=== PATIENT | female | born 1995 | race Caucasian/White ===

== ENCOUNTER 2022-08-22 10:18 | Emergency (ER) | payer OTHER, SELFPAY ==
--- NOTE | ~2022-08-22 | XR_ITS ---
EXAMINATION: XR CHEST CLINICAL INFORMATION: Chest pressure COMPARISON: None TECHNIQUE: Frontal view of the chest was obtained. FINDINGS: No significant abnormality is noted involving the heart, lungs, mediastinum, bony thorax or soft tissues. XR/XR chest 1V IMPRESSION: Unremarkable chest examination.
--- NOTE | 2022-08-22 10:24 | ECG_ITS ---
Test Reason : CHEST PRESSURE Blood Pressure : / mmHG Vent. Rate : 069 BPM Atrial Rate : 069 BPM P-R Int : 134 ms QRS Dur : 086 ms QT Int : 394 ms P-R-T Axes : 019 072 046 degrees QTc Int : 422 ms Normal sinus rhythm with sinus arrhythmia RSR' or QR pattern in V1 suggests right ventricular conduction delay Otherwise normal ECG When compared with ECG of 22-MAY-2013 14:22, No significant change was found Referred By: Generic ED Physician Electronically Signed By:JUSTIN JACQUES MD
[2022-08-22 10:27] VITALS: BP 125/73; PULSE 79; RESP 18; TEMP 36.4; O2SAT 98; BMI 28.9
[2022-08-22 10:42] LABS: MANUAL DIFF FLAG NO
[2022-08-22 10:45] LABS: Basophils Percent Auto 0.3 % (0-2); Eosinophils Absolute Auto 0.1 X10*3/uL (0.0-0.4); Eosinophils Percent Auto 1.4 % (0-4); Hematocrit 40.8 % (37.0-47.0); Hemoglobin 13.1 g/dl (12.0-16.0); Imm Gran Abs Auto 0.01 X10*3/uL (0.00-0.03); Imm Gran Pct Auto 0.1 % (0.0-0.4); Lymphocytes Absolute Auto 2.2 X10*3/uL (1.2-4.9); Lymphocytes Percent Auto 29.6 % (20-40); Mean Corpuscular HGB Conc 32.1 g/dl (31.0-35.0); Mean Corpuscular Hemoglobin 26.4 pg (27.0-33.0); Mean Corpuscular Volume 82.3 fL (80.0-98.0); Mean Platelet Volume 10.9 fL (9.4-12.3); Monocytes Absolute Auto 0.3 X10*3/uL (0.1-1.2); Monocytes Percent Auto 4.5 % (2-11); Neutrophils Absolute Auto 4.7 x10*3/uL (2.0-8.3); Neutrophils Percent Auto 64.1 % (45-73); Platelet Count 283 X10*3/uL (160-400); Red Blood Count 4.96 X10*6/uL (4.20-5.50); Red Cell Distribution Width 14.6 % (11.0-16.0); White Blood Count 7.3 X10*3/uL (4.8-10.8)
[2022-08-22 11:03] LABS: Anion Gap 14 (12-20); Blood Urea Nitrogen 12 mg/dL (9-16); Calcium 9.3 mg/dL (8.4-10.2); Carbon Dioxide 19 mmol/L (22-29); Chloride 111 mmol/L (96-108); Creatinine Clr Calc Pharmacy 101.3; Estimated Glomerular Filt Rate > 60; Glucose Random 89 mg/dL (60-115); Potassium 4.2 mmol/L (3.3-5.1); Sodium 140 mmol/L (135-145)
[2022-08-22 11:07] LABS: COVID-19 Test Negative (Negative); IDNOW Serial# 16C4AD1C
[2022-08-22 11:10] LABS: Troponin-I High Sensitivity < 3.5 ng/L (<3.5-17.0)
--- NOTE | 2022-08-22 13:07 | ED_ITS ---
HPI - Chest Pain General Chief Complaint: Chest Pain Stated Complaint: Chest pressure Time Seen by Provider: 08/22/22 12:44 Source: patient and family () Mode of arrival: ambulatory Limitations: no limitations History of Present Illness HPI narrative: 27-year-old female otherwise healthy presented for evaluation of chest pain. Pain started 14 hours ago while she was sleeping described as dull aching pain i n the mid chest feels like pressure, no radiation, no shortness of breath, no fever, no chills. No recent travel, no lower extremity swelling or tenderness, no DVT, no PE history. Related Data Allergies Allergy/AdvReac Type Severity Reaction Status Date / Time No Known Allergies Allergy Unverified 06/12/20 16:18 Review of Systems Review of Systems: All other systems are reviewed and are negative Constitutional: Reports as per HPI and Reports no additional constitutional complaints Eyes: Reports as per HPI and Reports no additional eye complaints Reports system reviewed and no additional complaints, except as documented Cardiovascular: Reports as per HPI and Reports no additional cardiovascular complaints Respiratory: Reports as per HPI and Reports no additional respiratory complaints Gastrointestinal: Reports as per HPI and Reports no additional gastrointestinal complaints Genitourinary: Reports no additional female genitourinary complaints Musculoskeletal: Reports no additional musculoskeletal complaints Skin/Breast: Reports system reviewed and no additional complaints, except as docu Psychiatric: Reports no additional psychiatric complaints Endocrine: Reports no additional endocrine complaints Hematologic/Lymphatic: Reports no additional hematologic/lymphatic complaints Allergic/Immunologic: Reports no additional allergic/immunologic complaints Reports system reviewed and no additional complaints, except as documented and Reports Abnormal speech present Physical Exam Vital Signs: Vital Signs: Last Vital Signs Temp 97.5 F 08/22/22 10:27 Pulse 79 08/22/22 10:27 Resp 18 08/22/22 10:27 BP 125/73 08/22/22 10:27 Pulse Ox 98 08/22/22 10:27 O2 Del Method 08/22/22 10:27 BMI result Body Mass Index 28.9 Vital signs have been reviewed as appeared to be correct. Blood pressure normal. Heart rate normal. Respiration rate normal. Temperature normal. Oxygen saturation normal. Appearance: Alert. Oriented X3. No acute distress. Head: Normal external exam. Normocephalic. Atraumatic. No Freedman signs noted. No raccoon eyes noted Eyes: PERRLA. EOMI. Conjunctiva and sclera normal. Eyelids normal. ENT: TM's Normal. Pharynx normal. Uvula midline. Moist mucous membranes. No trismus noted. No drooling noted. No muffled voice noted. Neck: Normal inspection. Neck supple. FROM. No adenopathy. Thyroid Normal. No meningeal signs. No neck mass noted. CVS: Normal heart rate and rhythm. Heart sound normal. No murmurs noted. Pulses normal throughout. Respiratory: No respiratory distress. Painless inspiration. Breath sounds normal. No wheezes/rales/rhonchi noted. Chest nontender. No accessory muscle usage noted or decreased air movement noted. Abdomen: Soft and nontender. Bowel sounds normal in all 4 quadrants. No distention noted. No organomegaly noted. No visible injury noted. Back: No CVA tenderness. Full range of motion noted. Skin: Skin warm and dry. Normal skin color. Normal skin turgor. No rashes/lesions/lacerations noted. Extremities: No lower extremity edema. Extremities exhibit normal range of motion. Extremities nontender. Neuro: Oriented X 3. Cranial nerve exam: II-XII are grossly intact No motor deficit. No sensory deficit. Reflexes normal. Course Course Course Narrative: Patient with HEART score of 0 unremarkable labs, patient at no risk for PE, stable vital signs, will reassure and discharge. MDM - Chest Pain Medical Records Data Attestation: I reviewed the patient's medical records. Lab Data Attestation: I reviewed the patient's lab results. Result diagrams: 08/22/22 10:37 08/22/22 10:37 Labs: Lab Results 08/22/22 08/22/22 08/22/22 Range/Units 10:37 10:37 10:37 WBC 7.3 (4.8-10.8) X10*3/uL RBC 4.96 (4.20-5.50) X10*6/uL Hgb 13.1 (12.0-16.0) g/dl Hct 40.8 (37.0-47.0) % MCV 82.3 (80.0-98.0) fL MCH 26.4 L (27.0-33.0) pg MCHC 32.1 (31.0-35.0) g/dl RDW 14.6 (11.0-16.0) % Plt Count 283 (160-400) X10*3/uL MPV 10.9 (9.4-12.3) fL Immature Gran % (Auto) 0.1 (0.0-0.4) % Neut % (Auto) 64.1 (45-73) % Lymph % (Auto) 29.6 (20-40) % Miller % (Auto) 4.5 (2-11) % Eos % (Auto) 1.4 (0-4) % Baso % (Auto) 0.3 (0-2) % Lymph # (Auto) 2.2 (1.2-4.9) X10*3/uL Miller # (Auto) 0.3 (0.1-1.2) X10*3/uL Eos # (Auto) 0.1 (0.0-0.4) X10*3/uL Baso # (Auto) 0.0 (0.0-0.2) X10*3/uL Abs Immat Gran (auto) 0.01 (0.00-0.03) X10*3/uL Absolute Neuts (auto) 4.7 (2.0-8.3) x10*3/uL Absolute Nucleated RBC 0.000 (0.0-0.012) X10*3/uL Nucleated RBC % (auto) 0.0 (0.0-0.2) /100WBC Sodium 140 (135-145) mmol/L Potassium 4.2 (3.3-5.1) mmol/L Chloride 111 H (96-108) mmol/L Carbon Dioxide 19 L (22-29) mmol/L Anion Gap 14 (12-20) BUN 12 (9-16) mg/dL Creatinine 0.70 (0.5-1.4) mg/dL Estim Creat Clear Calc 101.3 Estimated GFR > 60 Random Glucose 89 (60-115) mg/dL Calcium 9.3 (8.4-10.2) mg/dL Troponin I High Sens < 3.5 (<3.5-17.0) ng/L COVID-19 (GLENDA) (Negative) COVID-19 Clin Com 08/22/22 Range/Units 10:38 WBC (4.8-10.8) X10*3/uL RBC (4.20-5.50) X10*6/uL Hgb (12.0-16.0) g/dl Hct (37.0-47.0) % MCV (80.0-98.0) fL MCH (27.0-33.0) pg MCHC (31.0-35.0) g/dl RDW (11.0-16.0) % Plt Count (160-400) X10*3/uL MPV (9.4-12.3) fL Immature Gran % (Auto) (0.0-0.4) % Neut % (Auto) (45-73) % Lymph % (Auto) (20-40) % Miller % (Auto) (2-11) % Eos % (Auto) (0-4) % Baso % (Auto) (0-2) % Lymph # (Auto) (1.2-4.9) X10*3/uL Miller # (Auto) (0.1-1.2) X10*3/uL Eos # (Auto) (0.0-0.4) X10*3/uL Baso # (Auto) (0.0-0.2) X10*3/uL Abs Immat Gran (auto) (0.00-0.03) X10*3/uL Absolute Neuts (auto) (2.0-8.3) x10*3/uL Absolute Nucleated RBC (0.0-0.012) X10*3/uL Nucleated RBC % (auto) (0.0-0.2) /100WBC Sodium (135-145) mmol/L Potassium (3.3-5.1) mmol/L Chloride (96-108) mmol/L Carbon Dioxide (22-29) mmol/L Anion Gap (12-20) BUN (9-16) mg/dL Creatinine (0.5-1.4) mg/dL Estim Creat Clear Calc Estimated GFR Random Glucose (60-115) mg/dL Calcium (8.4-10.2) mg/dL Troponin I High Sens (<3.5-17.0) ng/L COVID-19 (GLENDA) Negative (Negative) COVID-19 Clin Com See Note Imaging Data Chest x-ray: Attestation: I personally reviewed and interpreted this imaging study as follows: Radiologist's impression: No acute pathology. ECG Data ECG #1: Attestation: I personally reviewed and interpreted this ECG as follows: Attending Attestation Normal sinus rhythm with sinus arrhythmia at 69 beats per minutes, normal intervals, no ST-T changes, no change from old EKG. Discharge Plan Discharge Clinical Impression: Chest pain Patient Disposition: Home, Self-Care Instructions: Chest Pain (ED) Referrals: Sonia Holland DO [Primary Care Provider] -
== END 2022-08-22 13:45 | disposition home or self-care (01) ==
PROVIDERS: Emergency Provider Emergency Medicine
DX: R07.89 Other chest pain (principal); Z20.822 Contact with and (suspected) exposure to COVID-19; Z79.899 Other long term (current) drug therapy
CPT/HCPCS: 36415; 71045; 80048; 84484; 85025; 87635; 93005; 99283

== ENCOUNTER 2025-06-12 08:30 | Outpatient (AMB) | payer OTHER, SELFPAY ==
--- NOTE | 2025-06-12 08:31 | MHC.PC.OV ---
Vital Signs 06/12/25 08:40 Height 5 ft 1.22 in Weight 161 lb 8 oz BMI 30.3 BP 110/80 Blood Pressure Location Rt brachial Position Sitting Respiration 16 Pulse 73 Pulse Source Pulse Oximeter Temp 97.9 F Temp Source Oral Pulse Oximetry (%) 98 Oxygen Delivery Method Room Air Intake Visit Reasons: Migraines, Abdominal pain Intake Note: having a lot of headaches and tiredness. Air Conditioning Service Technician Required: No Accompanied by: Self / Same As Patient Allergies No Known Allergies Allergy (Verified 06/12/25 08:31) Tobacco use date assessed: 06/12/25 Dental Screening Dental Screen Date: 06/12/25 Did you have a dental visit in the last 12 months?: No Did you have a dental problem in the last 6 months where you did not have access to dental care?: No Was dental information given to patient?: No HPI HPI Comments History of Present Illness Details History of Present Illness The patient is a 30-year-old female presenting with a headache and a history of knee dislocation who is establishing care with new primary care physician Headache: - The patient reports experiencing headaches for almost two months, characterized by significant tiredness. She mentioned she had history of anemia in the past and heavy menstrual cycles where she has a discharge of clots she has a family history of fibroids her mother, her mother had to have a hysterectomy performed Knee dislocation: - The patient experienced a knee dislocation that occurred spontaneously and required emergency room intervention to reposition the kneecap. Health Maintenance - Blood panel including hemogram, liver and kidney function tests, electrolytes, calcium, magnesium, thyroid function, hemoglobin A1c, lipid profile, vitamin D, and hepatitis B and C screening were ordered. - Screening for chlamydia and gonorrhea was discussed and agreed upon. -she is also due for cervical cancer screening she will make an appointment for follow-up Review of Systems - Neurological: Reports headaches for almost two months with associated tiredness. 10-point ROS reviewed and negative except as noted in HPI Family History Mother has history of fibroids status post hysterectomy Social History - Employment: Currently unemployed but starting a new job next week. Physical Exam General: Well-appearing, in no acute distress. Pale in color Vital signs: Within normal limits. HEENT: Normocephalic, atraumatic. PERRLA, EOMI. Conjunctiva clear, sclera anicteric. Oropharynx clear, mucous membranes moist. TMs intact bilaterally. Neck: Supple, no lymphadenopathy, no thyromegaly, no JVD or carotid bruits. Cardiovascular: RRR, normal S1/S2, no murmurs, rubs, or gallops. Peripheral pulses 2+ and symmetric. No edema. Respiratory: Lungs clear to auscultation bilaterally, no wheezes, rales, or rhonchi. Normal effort. Abdomen: Soft, non-tender, non-distended. Normoactive bowel sounds. No hepatosplenomegaly, no masses. MSK: Full range of motion, no joint swelling or deformity. Normal gait. Skin: Warm, dry, intact. No rashes, lesions, or pallor. Neuro: Alert and oriented x3. Cranial nerves II-XII intact. Strength 5/5 throughout. Sensation intact. Reflexes 2+ symmetric. Normal coordination and gait. Psych: Appropriate mood and affect. Normal judgment and insight. Discussion Notes I discussed with the patient the plan to conduct a comprehensive blood panel to evaluate various health parameters, including liver and kidney function, electrolytes, and thyroid function. We also agreed to screen for sexually transmitted infections, including chlamydia and gonorrhea. Follow-up was planned to review the results and continue with further management. Plan 1. Headache - Plan to conduct a comprehensive blood panel to rule out any underlying causes contributing to the headache. 2. Personal history of other (healed) physical injury and trauma Z87.828 dislocated knee last year Patient Instructions - Follow up in one to two weeks to review blood test results and discuss further management. ON LICENSE OF [facility] Family History (Updated 06/12/25 @ 08:40 by Miguel Ángel Hong MA) Father Parkinson disease Seizure Mother High cholesterol High blood pressure Non-alcoholic fatty liver disease Social History Housing: House Alcohol intake: current Alcohol intake frequency: does not drink Patient Tobacco Use Status: Never used Tobacco service: No Current occupational status: unemployed Cognitive needs: No Hearing needs: No Vision needs: Yes (rx glasses) Questionnaire PHQ-9 Over the last 2 weeks, how often have you been bothered by any of the following problems? 1. Little interest or pleasure in doing things: several days 2. Feeling down, depressed, or hopeless: several days 3. Trouble falling or staying asleep, or sleeping too much: several days 4. Feeling tired or having little energy: several days 5. Poor appetite or overeating: several days 6. Feeling bad about yourself - or that you are a failure or have let yourself or your family down: several days 7. Trouble concentrating on things, such as reading the newspaper or watching television: several days 8. Moving or speaking so slowly that other people could have noticed. Or the opposite - being so fidgety or restless that you have been moving around a lot more than usual: several days 9. Thoughts that you would be better off or of hurting yourself in some way: not at all Total score: 8 Depression Screening Interpretation: Positive Depression Screening Done: Yes Source: Developed by Drs. Eric Tierney, Sirisha Jeffery, Kvng Brandt and colleagues, with an educational letha from [employer]. Thrive Questionnaire Date Thrive assessed: 06/12/25 I am a: Patient What is your living situation today?: I have a steady place to live Within the past 12 months, did the food you bought not last and you didn't have the money to get more?: Sometimes True Within the past 12 months, did you worry whether your food would run out before you got money to buy more?: Sometimes True Do you have trouble paying for medicines?: No Do you have trouble getting transportation to medical appointments?: No Do you have trouble paying your heating and electricity bill?: No Do you have trouble taking care of your child, family member or friend?: No Are you currently unemployed and looking for a job?: No Are you interested in more education?: No Please select the resources that you would like help with: None Currently or been in a relationship where the following occur: No concerns reported THRIVE Score: 2 AUDIT C Alcohol Use Questionnaire (AUDIT-C) 1. How often do you have a drink containing alcohol?: Never 3. How often do you have six or more drinks on one occasion?: Never Total Score: 0 NIK-7 AMB Questionnaire NIK-7 Date NIK - 7 assessed: 06/12/25 Feeling nervous, anxious, or on edge: 1 = Several days Not being able to stop or control worryin = Several days Worrying too much about different things: 1 = Several days Trouble relaxin = Several days Being so restless that it is hard to sit still: 2 = More than half the days Becoming easily annoyed or irritable: 2 = More than half the days Feeling afraid as if something awful might happen: 1 = Several days Total NIK-7 score (0-4 normal; 5-9 mild; 10-14 moderate; 15-21 severe): 9 Source: Developed by Drs. Eric Tierney, Sirisha Jeffery, Kvng Brandt and colleagues, with an educational letha from [employer]. Physical exam (Primary Care) Depression Screening Interpretation: Positive Currently or been in a relationship where the following occur: No concerns reported Coding Level of Care Code New Pt Level 4 (32639) Diagnoses Establishing care with new doctor, encounter for Z76. Routine lab draw Z01. Encounter for screening, unspecified Z13.9 Screening for HIV (human immunodeficiency virus) Z11.4 Screening for depression Z13.31 Screening for diabetes mellitus Z13.1 Screening for lipoid disorders Z13.220 Hypertension screen Z13.6 Class 1 obesity E66.811 Adjustment disorder with mixed anxiety and depressed mood F43.23 Chronic intractable headache, unspecified headache type R51.9; G89.29 Headache type: unspecified Intractability: intractable Chronic fatigue R53.82 Fatigue type: chronic, unspecified Menorrhagia with regular cycle N92.0 Menorrhagia type: with regular cycle Assessment & Plan Assessment & Plan (1) Establishing care with new doctor, encounter for: Code(s): Z76.89 - Persons encountering health services in other specified circumstances (2) Routine lab draw: Code(s): Z01.89 - Encounter for other specified special examinations (3) Encounter for screening, unspecified: Code(s): Z13.9 - Encounter for screening, unspecified (4) Screening for HIV (human immunodeficiency virus): Code(s): Z11.4 - Encounter for screening for human immunodeficiency virus [HIV] (5) Screening for depression: Code(s): Z13.31 - Encounter for screening for depression (6) Screening for diabetes mellitus: Code(s): Z13.1 - Encounter for screening for diabetes mellitus (7) Screening for lipoid disorders: Code(s): Z13.220 - Encounter for screening for lipoid disorders (8) Hypertension screen: Code(s): Z13.6 - Encounter for screening for cardiovascular disorders (9) Class 1 obesity: Code(s): E66.811 - Obesity, class 1 (10) Adjustment disorder with mixed anxiety and depressed mood: Code(s): F43.23 - Adjustment disorder with mixed anxiety and depressed mood (11) Chronic headache: Code(s): R51.9 - Headache, unspecified; G89.29 - Other chronic pain Qualifiers: Headache type: unspecified Intractability: intractable Qualified Code(s): R51.9 - Headache, unspecified; G89.29 - Other chronic pain (12) Fatigue: Code(s): R53.83 - Other fatigue Qualifiers: Fatigue type: chronic, unspecified Qualified Code(s): R53.82 - Chronic fatigue, unspecified (13) Heavy menstrual bleeding: Code(s): N92.0 - Excessive and frequent menstruation with regular cycle Qualifiers: Menorrhagia type: with regular cycle Qualified Code(s): N92.0 - Excessive and frequent menstruation with regular cycle Plan Orders: Orders Hemoglobin A1c Today Z13.9 - Encounter for screening, unspecified, Z76.89 - Persons encountering health services in other specified circumstances Hepatitis B Surface Antibody Today Z13.9 - Encounter for screening, unspecified, Z76.89 - Persons encountering health services in other specified circumstances Hepatitis B Surface Antigen Today Z13.9 - Encounter for screening, unspecified, Z76.89 - Persons encountering health services in other specified circumstances Lipid Panel Today Z13.9 - Encounter for screening, unspecified, Z76.89 - Persons encountering health services in other specified circumstances Magnesium Today Z13.9 - Encounter for screening, unspecified, Z76.89 - Persons encountering health services in other specified circumstances UA CC w/rflx Micro + Cult Today Z13.9 - Encounter for screening, unspecified, Z76.89 - Persons encountering health services in other specified circumstances Vitamin B12 and Folate Today Z13.9 - Encounter for screening, unspecified, Z76.89 - Persons encountering health services in other specified circumstances US abdomen complete Today R10.9 - Unspecified abdominal pain, Z13.9 - Encounter for screening, unspecified, Z76.89 - Persons encountering health services in other specified circumstances CT NG by PCR Urine Today Z13.9 - Encounter for screening, unspecified, Z76.89 - Persons encountering health services in other specified circumstances Syphilis Screen Today Z13.9 - Encounter for screening, unspecified, Z76.89 - Persons encountering health services in other specified circumstances IRON PROFILE Today D50.9 - Iron deficiency anemia, unspecified Complete Blood Count Auto Diff Today Z13.9 - Encounter for screening, unspecified, Z76.89 - Persons encountering health services in other specified circumstances Comprehensive Met. Panel Today Z13.9 - Encounter for screening, unspecified, Z76.89 - Persons encountering health services in other specified circumstances Hepatitis C Antibody Today Z13.9 - Encounter for screening, unspecified, Z76.89 - Persons encountering health services in other specified circumstances HIV Ab/Ag Today Z13.9 - Encounter for screening, unspecified, Z76.89 - Persons encountering health services in other specified circumstances TSH reflex Free T4 Today Z13.9 - Encounter for screening, unspecified, Z76.89 - Persons encountering health services in other specified circumstances Vitamin D 1,25 dihydroxy Today Z13.9 - Encounter for screening, unspecified, Z76.89 - Persons encountering health services in other specified circumstances Chlamydia Species Ab Panel Today Z13.9 - Encounter for screening, unspecified, Z76.89 - Persons encountering health services in other specified circumstances Ferritin Today D50.9 - Iron deficiency anemia, unspecified Transferrin Today D50.9 - Iron deficiency anemia, unspecified
[2025-06-12 08:40] VITALS: BP 110/80; PULSE 73; RESP 16; TEMP 36.6; O2SAT 98; BMI 30.3
--- OUTSIDE RECORDS SUMMARY | 2025-06-12 09:38 | XMS_ITS | Clinical Summary ---
Author Organization [facility] ity Address [address] [place] [address] Care Team Providers Care Snuff Maker Name Role Phone Scott John MD Primary Care Provider [phone] Allergies No known active allergies Medications gabapentin (NEURONTIN) 100 mg capsule TAKE 1 CAPSULE BY MOUTH THREE TIMES A DAY 03/28/2024 Active ibuprofen (ADVIL,MOTRIN) 600 mg tablet TAKE 1 TABLET BY MOUTH 3 TIMES A DAY, FOR 5 DAYS 03/28/2024 Active tiZANidine (ZANAFLEX) 4 mg tablet TAKE 1/2 TABLET BY MOUTH 3 TIMES A DAY,X7 DAYS 03/28/2024 Active meclizine (ANTIVERT) 25 mg tablet Take 1 Tab by mouth 3 times daily as needed for Other (dizziness). 12/11/2020 Active ondansetron (ZOFRAN) 4 mg tablet Take 1 Tab by mouth every 8 hours as needed for Nausea for up to 7 days. 12/11/2020 Active Lactobacillus acidophilus (PROBIOTIC ACIDOPHILUS ORAL) Take 1 Cap by mouth daily. 01/02/2018 Active Active Problems Problem Noted Date Diagnosed Date Overweight (BMI 25.0-29.9) 11/04/2022 Chronic back pain 12/15/2018 Overview (10/24/2024): 11/2018 Seen at [facility]- consult to scanning Immunizations Name Administration Dates Next Due Influenza Quadravalent, MDCK , 0.5ml, preservative free (Flucelvax) 6mo and older 06/19/2018 Influenza, Unspecified 08/26/2016 Tdap Tetanus diptheria acell ular pertussis (Boostrix; Adacel) 7yo and older 04/06/2018,10/13/2013 Surgical History Surgery Date Site/Laterality Comments OTHER SURGICAL HISTORY PROCEDURE: DENIES PREVIOUS SURGERY Medical History Medical History Date Comments Venereal disease 2014 DX:Venereal dis ease Family History Medical History Relation Name Comments Ovarian cancer Aunt 1 Other: 1 brothers Brother Breast cancer Maternal Grandmother Hyperlipidemia Mother Other: Other Other neg Other: 4 sisters Sister Colon cancer Uncle Cervical cancer Neg Hx Lung cancer Neg Hx Relation Name Status Comments Aunt 1 Aunt 2 all paternal au nts had cholecystectomy Brother Alive Father Alive Father's side cousines x 2 h ad cholecystectomy Maternal Grandmother Mother Alive Other Sister Alive Uncle Social History Tobacco Use Types Packs/Day Years Used Date Smoking Tobacco: Never Smokeless Tobacco: Never Alcohol Use Standard Drinks/Week Comments No 0 (1 standard drink = 0.6 oz pur e alcohol) Comments Unknown Sex and Gender Information Value Date Recorded Sex Assigned at Not on file Legal Sex Female 5:36 AM EST Gender Identity Not on file Sexual Orientation Not on file Obstetrics History Last Filed Vital Signs Vital Sign Reading Time Taken Comments Blood Pressure 122/90 04/10/2024 1:47 PM EDT Pulse 87 04/10/2024 1:06 PM EDT Temperature - - Respiratory Rate - - Oxygen Saturation - - Inhaled Oxygen Concentration - - Weight 75.4 kg (166 lb 3.2 oz) 04/10/2024 1:06 P M EDT Height 152.4 cm (5') 04/10/2024 1:06 PM EDT Body Mass Index 32.46 04/10/2024 1:06 PM EDT Plan of Treatment Health Maintenance Due Date Last Done Comments Hepatitis B Vaccines (1 of 3 - 19+ 3-dose series) 2012 Social Influencers of Health Screening 09/04/2022 Depression Screening 09/26/2024 COVID-19 Vaccine ( - 2023-2 5 season) 2025 Influenza Vaccine (#1) 2025 8, 08/26/2016 Cervical Cancer Screening: HPV 11/19/2025 11/19/2020 DTaP,Tdap,and Td Vaccines (3 - Td or Tdap) 04/06/2028 04/06/2018, 10/13/2013 HIV Screening Completed 11/18/2017 Hepatitis C Screening Completed 11/18/2017 HIB Vaccines Aged Out No longer eligi ble based on patient's age to complete this topic HPV Vaccines Aged Out No longer eligi ble based on patient's age to complete this topic Hepatitis A Vaccines Aged Out No long er eligible based on patient's age to complete this topic IPV Vaccines Aged Out No longer eligi ble based on patient's age to complete this topic MMR Vaccines Aged Out No longer eligi ble based on patient's age to complete this topic Meningococcal ACWY Vaccine Aged Out N o longer eligible based on patient's age to complete this topic Meningococcal B Vaccine Aged Out No l onger eligible based on patient's age to complete this topic Pneumococcal Vaccine: Pediatrics (0 to 5 Years) and At-Risk Patients (6 to 49 Years) Aged Out No longer eligible b ased on patient's age to complete this topic RSV Immunization Patients Under 20 months Aged Out No longer eligible b ased on patient's age to complete this topic Varicella Vaccines Aged Out No longer eligible based on patient's age to complete this topic Procedures Procedure Name Priority Date/Time Associated Diagnosis Comments HPV Routine 11/19/2020 HEPATITIS C SCREENING Routine 11/18/2017 HIV SCREENING Routine 11/18/2017 from Last 3 Months or Most Recently Relevant to Health Maintenance Results * Cervical Cancer Screening: HPV (11/19/2020) Pathologist [facility] Cervical Cancer Screening: HPV Abstracted, No Interpretation [facility] Provider HEALTH MAINTENANCE Final Result * HIV Screening (11/18/2017) Pathologist [facility] HIV Screening abstracted [facility] Provider HEALTH MAINTENANCE Final Result * Hepatitis C Screening (11/18/2017) Pathologist [facility] Hepatitis C Screening abstracted [facility] Provider HEALTH MAINTENANCE Final Result from Last 3 Months or Most Recently Relevant to Health Maintenance Care Teams Snuff Maker Relationship Specialty Start Date End Date Scott John MD [address] [facility] [place] [place] [address] PCP - General Internal Medicine 10/01/20
--- OUTSIDE RECORDS SUMMARY | 2025-06-12 09:38 | XMS_ITS ---
[facility] Organization Unknown Care Team Organization Name Specialty Phone Email Start Date End Da te [facility] Ousmane Galvan [facility] 08/03/2022 05/14/2024
== END 2025-06-12 08:57 | disposition home or self-care (01) ==
LOC: HO.HMCFMS 08:30
PROVIDERS: PCP Student in an Organized Health Care Education/Training Program; Visit Provider Student in an Organized Health Care Education/Training Program
DX: R51.9 Headache, unspecified (principal); G89.29 Other chronic pain; F43.23 Adjustment disorder with mixed anxiety and depressed mood; R53.82 Chronic fatigue, unspecified; E66.811 Obesity, class 1; N92.0 Excessive and frequent menstruation with regular cycle

== ENCOUNTER 2025-06-12 08:30 | Outpatient (REF) | payer OTHER, SELFPAY ==
[2025-06-12 13:12] LABS: MANUAL DIFF FLAG NO
[2025-06-12 13:19] LABS: Hematocrit 39.0 % (37.0-47.0); Hemoglobin 12.3 g/dl (12.0-16.0); Imm Gran Abs Auto 0.02 X10*3/uL (0.00-0.03); Imm Gran Pct Auto 0.3 % (0.0-0.4); Lymphocytes Absolute Auto 1.8 X10*3/uL (1.2-4.9); Mean Corpuscular HGB Conc 31.5 g/dl (31.0-35.0); Mean Corpuscular Hemoglobin 25.1 pg (27.0-33.0); Mean Corpuscular Volume 79.6 fL (80.0-98.0); NRBC Abs Auto 0.000 X10*3/uL (0.0-0.012); NRBC Pct Auto 0.0 /100WBC (0.0-0.2); Platelet Count 332 X10*3/uL (160-400); Red Blood Count 4.90 X10*6/uL (4.20-5.50); White Blood Count 6.6 X10*3/uL (4.8-10.8)
[2025-06-12 13:23] LABS: Appearance Urine Turbid; Glucose Urine UA Negative (Negative); PH 5.5 (5.0-9.0); Specific Gravity - Urine 1.025 (1.005-1.025)
[2025-06-12 13:27] LABS: Hemoglobin A1C 107.3853 umol/L
[2025-06-12 14:08] LABS: Alanine Aminotransferase 21 U/L (0-31); Albumin Level 4.2 g/dL (3.5-5.0); Alkaline Phosphatase 72 U/L (39-117); Anion Gap 8 (12-20); Aspartate Amino Transferase 24 U/L (5-31); Blood Urea Nitrogen 10 mg/dL (9-16); Calcium 9.0 mg/dL (8.4-10.2); Carbon Dioxide 26 mmol/L (22-29); Chloride 112 mmol/L (96-108); Cholesterol 202 mg/dL (<200); Estimated Glomerular Filt Rate > 60; HDL Cholesterol 47 mg/dL (>40); Iron 31 mcg/dL (30-160); Magnesium 2.1 mg/dL (1.6-2.6); Percent Iron Saturation 10 % (15-50); Potassium 4.0 mmol/L (3.3-5.1); Sodium 142 mmol/L (135-145); Total Iron Binding Capacity 314 mcg/dL (228-428); Total Protein 7.0 g/dL (6.5-8.0); Triglycerides 93 mg/dL (<150); Unsaturated Iron Binding 283 ug/dL
[2025-06-12 14:19] LABS: Folate 12.4 ng/mL (> or = 4.0); Vitamin B12 688 pg/mL (200-900)
[2025-06-12 14:29] LABS: Ferritin 8 ng/mL (10-122)
[2025-06-13 03:14] LABS: Transferrin 289 mg/dL (188-341)
[2025-06-13 04:44] LABS: Syphilis Screen Nonreactive (Nonreactive)
[2025-06-13 05:04] LABS: HBsAGNum1 0.50 S/CO (0.00-0.99); HIV Num 1 0.04 S/CO (0.00-0.99); Hepatitis B Surface Antigen Negative (Negative); ~HepC Num1 0.15 S/CO (0.00-0.79); ~Hepatitis B Surface Antibody REACTIVE (Nonreactive); ~Hepatitis C Antibody Nonreactive (Nonreactive)
[2025-06-18 20:53] LABS: VITAMIN D (1,25 OH) D3 48 pg/mL; Vit D (1,25-Dihydroxy) Total 48 pg/mL (18-72); Vitamin D (1,25 OH) D2 <8 pg/mL
== END 2025-06-12 08:31 | disposition home or self-care (01) ==
LOC: HO.HKASLDS 08:30
PROVIDERS: Visit Provider Student in an Organized Health Care Education/Training Program
DX: Z76.89 Persons encountering health services in other specified circumstances (principal); Z13.9 Encounter for screening, unspecified; Z01.89 Encounter for other specified special examinations; Z11.4 Encounter for screening for human immunodeficiency virus [HIV]; Z13.31 Encounter for screening for depression; Z13.1 Encounter for screening for diabetes mellitus; Z13.220 Encounter for screening for lipoid disorders; Z13.6 Encounter for screening for cardiovascular disorders; R51.9 Headache, unspecified; E66.811 Obesity, class 1; D50.9 Iron deficiency anemia, unspecified; F43.23 Adjustment disorder with mixed anxiety and depressed mood; G89.29 Other chronic pain; R53.82 Chronic fatigue, unspecified; N92.0 Excessive and frequent menstruation with regular cycle; Z68.30 Body mass index [BMI] 30.0-30.9, adult
CPT/HCPCS: 36415; 80053; 80061; 81003; 82607; 82652; 82728; 82746; 83036; 83540; 83735; 84443; 84466; 85025; 86631; 86632; 86706; 86780; 86803; 87340; 87389

== ENCOUNTER 2025-06-21 11:52 | Outpatient (REF) | payer OTHER, SELFPAY ==
--- OUTSIDE RECORDS SUMMARY | 2025-06-21 13:43 | XMS_ITS | Clinical Summary ---
Author Organization [facility] ity Address [address] [place] [address] Care Team Providers Care Research Epidemiologist Name Role Phone Scott John MD Primary Care Provider [phone] Allergies No known active allergies Medications gabapentin [...] pain 12/15/2018 Overview (10/24/2024): 11/2018 Seen at [facility]- consult to scanning Immunizations Name [...] * Cervical Cancer Screening: HPV (11/19/2020) Pathologist [facility] Cervical Cancer Screening: HPV Abstracted, No Interpretation [facility] Provider HEALTH MAINTENANCE Final Result * HIV Screening (11/18/2017) Pathologist [facility] HIV Screening abstracted [facility] Provider HEALTH MAINTENANCE Final Result * Hepatitis C Screening (11/18/2017) Pathologist [facility] Hepatitis C Screening abstracted [facility] Provider HEALTH MAINTENANCE Final Result from Last 3 Months or Most Recently Relevant to Health Maintenance Care Teams Research Epidemiologist Relationship Specialty Start Date End Date Scott John MD [address] [facility] [place] [address] PCP - General Internal Medicine 10/01/20
[2025-06-22 03:01] LABS: CT PCR Urine NOT DETECTED (Not Detect.); NG PCR Urine NOT DETECTED (Not Detect.)
== END 2025-06-21 11:53 | disposition home or self-care (01) ==
LOC: HO.HKASLDS 11:52
PROVIDERS: Visit Provider Student in an Organized Health Care Education/Training Program
DX: Z11.3 Encounter for screening for infections with a predominantly sexual mode of transmission (principal); Z11.8 Encounter for screening for other infectious and parasitic diseases; Z76.89 Persons encountering health services in other specified circumstances
CPT/HCPCS: 87491; 87591

== ENCOUNTER 2025-06-24 09:28 | Outpatient (AMB) | payer OTHER, SELFPAY ==
[2025-06-24 09:43] VITALS: BP 121/66; PULSE 81; RESP 16; TEMP 36.6; O2SAT 98
--- NOTE | 2025-06-24 09:43 | MHC.PC.OV ---
Vital Signs 06/24/25 09:43 Height 5 ft 1.22 in Weight 160 lb BMI 30.0 BP 121/66 Blood Pressure Location Rt brachial Position Sitting Respiration 16 Pulse 81 Pulse Source Pulse Oximeter Temp 98 F Temp Source Oral Pulse Oximetry (%) 98 Oxygen Delivery Method Room Air Intake Visit Reasons: 2 week follow up Intake Note: having a lot of headaches and tiredness. Water Well Driller Required: No Accompanied by: Self / Same As Patient Allergies No Known Allergies Allergy (Verified 06/24/25 09:44) Tobacco use date assessed: 06/12/25 Dental Screening Dental Screen Date: 06/12/25 Did you have a dental visit in the last 12 months?: No Did you have a dental problem in the last 6 months where you did not have access to dental care?: No Was dental information given to patient?: No HPI HPI Comments History of Present Illness Details History of Present Illness The patient is a 30-year-old female presenting with heavy menstrual bleeding, iron deficiency anemia, elevated cholesterol levels, and immune system concerns. Viral Cold Sore: - went away on vacation developed viral cold sore showing improvement. Iron Deficiency Anemia: - Low iron is associated with headaches and fatigue, likely due to irregular and heavy menstrual cycles. Menorrhagia: - Irregular cycles with heavy bleeding, no ultrasounds have been conducted for fibroid investigation. Sciatica: - Right leg radiating pain noted, possible association with lumbar issues. Hyperlipidemia: - Slight elevation in cholesterol, dietary modifications and barrel lathe operator inside consultation advised. Review of Systems - Dermatological: Reports viral cold sore with crinkles in the mouth, improving. - Hematological: Reports fatigue and headaches. - Reproductive: Reports irregular menstrual cycles with heavy bleeding, sometimes skipping a month. - Musculoskeletal: Reports pain traveling down the right leg, suggestive of sciatica. - Immune: Reports frequent illnesses and generalized immune system concerns. 10-point ROS reviewed and negative except as noted in HPI Past Medical History Health Maintenance - Ultrasound for fibroids to investigate heavy menstrual bleeding. - Referral to a barrel lathe operator inside for hyperlipidemia management. - Discussed lifestyle modifications including diet, exercise, and multivitamin intake for immune health. Physical Exam General: Well-appearing, in no acute distress. Vital signs: Within normal limits. HEENT: Normocephalic, atraumatic. PERRLA, EOMI. Conjunctiva clear, sclera anicteric. Oropharynx with cold sore, mucous membranes moist. TMs intact bilaterally. Neck: Supple, no lymphadenopathy, no thyromegaly, no JVD or carotid bruits. Cardiovascular: RRR, normal S1/S2, no murmurs, rubs, or gallops. Peripheral pulses 2+ and symmetric. No edema. Respiratory: Lungs clear to auscultation bilaterally, no wheezes, rales, or rhonchi. Normal effort. Abdomen: Soft, non-tender, non-distended. Normoactive bowel sounds. No hepatosplenomegaly, no masses. MSK: Full range of motion, no joint swelling or deformity. Normal gait. Reports pain traveling down the right leg, suggestive of sciatica. Skin: Warm, dry, intact. No rashes, lesions, or pallor. Healing cold sore bottom lip to the right Neuro: Alert and oriented x3. Cranial nerves II-XII intact. Strength 5/5 throughout. Sensation intact. Reflexes 2+ symmetric. Normal coordination and gait. Psych: Appropriate mood and affect. Normal judgment and insight. Plan 1. Viral Cold Sore - Monitor as improving; no treatment necessary. 2. Iron deficiency anemia, unspecified D50.9 - Supplement with iron and vitamin C; check blood levels in three months. 3. Excessive and frequent menstruation with regular cycle N92.0 - Schedule an ultrasound to evaluate for fibroids. 4. Sciatica, right side M54.31 - Advise stretching and heat application, use analgesics if needed. 5. Mixed hyperlipidemia E78.2 - Start dietary changes, consult a barrel lathe operator inside, recheck in six months. 6. Immune System Concerns - Recommend healthy lifestyle practices including exercise and nutrition. Discussion Notes I discussed with the patient the non-necessity of immediate treatment for her cold sore as it is improving. We explored her iron deficiency anemia, attributing it to heavy menstrual periods, and I recommended iron and vitamin C supplementation. Ultrasound examination was proposed to investigate potential fibroids causing menorrhagia. For sciatica, I advised exercises, the use of a heating pad, and pain management with analgesics as needed. I emphasized dietary changes and scheduled a barrel lathe operator inside referral for managing hyperlipidemia, with a follow-up in six months to reassess cholesterol levels. Moreover, I explained the importance of lifestyle modifications, exercise, and balanced diet to help bolster her immune system. Patient was informed and verbally consented to the use of an ambient scribe for clinic note documentation during this visit. Patient Instructions - Watch the cold sore for changes; inform if worse. - Take iron supplements with vitamin C daily and return for testing in three months. - Schedule an ultrasound for fibroids. - Do stretching exercises and use a heating pad for sciatica. - Follow diet recommendations and attend the barrel lathe operator inside appointment for cholesterol. - QuantiFERON gold ordered for employment screening - Adopt a healthy lifestyle with balanced diet, exercise, and multivitamins. [facility] Medical History (Updated 06/24/25 @ 10:22 by Kris Alanis MD) Menorrhagia Family History Father Parkinson disease Seizure Mother High cholesterol High blood pressure Non-alcoholic fatty liver disease Social History Housing: House Alcohol intake: current Alcohol intake frequency: does not drink Patient Tobacco Use Status: Never used Tobacco service: No Current occupational status: unemployed Cognitive needs: No Hearing needs: No Vision needs: Yes (rx glasses) Questionnaire PHQ-9 Over the last 2 weeks, how often have you been bothered by any of the following problems? 1. Little interest or pleasure in doing things: several days 2. Feeling down, depressed, or hopeless: several days 3. Trouble falling or staying asleep, or sleeping too much: several days 4. Feeling tired or having little energy: several days 5. Poor appetite or overeating: several days 6. Feeling bad about yourself - or that you are a failure or have let yourself or your family down: several days 7. Trouble concentrating on things, such as reading the newspaper or watching television: several days 8. Moving or speaking so slowly that other people could have noticed. Or the opposite - being so fidgety or restless that you have been moving around a lot more than usual: several days 9. Thoughts that you would be better off or of hurting yourself in some way: not at all Total score: 8 Depression Screening Interpretation: Positive Depression Screening Done: Yes Source: Developed by Drs. Eric Tierney, Sirisha Jeffery, Kvng Brandt and colleagues, with an educational letha from [employer]. Thrive Questionnaire Date Thrive assessed: 06/12/25 I am a: Patient What is your living situation today?: I have a steady place to live Within the past 12 months, did the food you bought not last and you didn't have the money to get more?: Sometimes True Within the past 12 months, did you worry whether your food would run out before you got money to buy more?: Sometimes True Do you have trouble paying for medicines?: No Do you have trouble getting transportation to medical appointments?: No Do you have trouble paying your heating and electricity bill?: No Do you have trouble taking care of your child, family member or friend?: No Are you currently unemployed and looking for a job?: No Are you interested in more education?: No Please select the resources that you would like help with: None Currently or been in a relationship where the following occur: No concerns reported THRIVE Score: 2 AUDIT C Alcohol Use Questionnaire (AUDIT-C) 1. How often do you have a drink containing alcohol?: Never 3. How often do you have six or more drinks on one occasion?: Never Total Score: 0 NIK-7 AMB Questionnaire NIK-7 Date NIK - 7 assessed: 06/12/25 Feeling nervous, anxious, or on edge: 1 = Several days Not being able to stop or control worryin = Several days Worrying too much about different things: 1 = Several days Trouble relaxin = Several days Being so restless that it is hard to sit still: 2 = More than half the days Becoming easily annoyed or irritable: 2 = More than half the days Feeling afraid as if something awful might happen: 1 = Several days Total NIK-7 score (0-4 normal; 5-9 mild; 10-14 moderate; 15-21 severe): 9 Source: Developed by Drs. Eric Tierney, Sirisha Jeffery, Kvng Brandt and colleagues, with an educational letha from [employer]. Physical exam (Primary Care) Vital Signs: Last Vital Signs Temp 98 F 06/24/25 09:43 Pulse 81 06/24/25 09:43 Resp 16 06/24/25 09:43 BP 121/66 06/24/25 09:43 Pulse Ox 98 06/24/25 09:43 Oxygen Delivery Method Room Air 06/24/25 09:43 BMI result Body Mass Index 30.0 Tobacco/Smoking Status: Tobacco use Status Tobacco use date assessed 06/12/25 06/24/25 09:49 Patient Tobacco Use Status Never used Tobacco 06/24/25 09:49 PHQ-9: PHQ-9 Score PHQ-9: Total score 8 06/24/25 09:49 Depression Screening Interpretation: Positive Thrive Assessment: Date of Thrive Assessment Date Thrive assessed 06/12/25 06/24/25 09:49 Currently or been in a relationship where the following occur: No concerns reported Coding Level of Care Code Est Pt Level 3 (21077) Diagnoses Encounter to discuss test results Z71.2 Iron deficiency E61.1 Low ferritin R79.0 Low mean corpuscular volume (MCV) R71.8 Mixed hyperlipidemia E78.2 Hyperlipidemia type: mixed hyperlipidemia Class 1 obesity E66.811 Menorrhagia with regular cycle N92.0 Menorrhagia type: with regular cycle Sciatica of right side M54.31 Laterality: right Hx of cold sores Z86.19 Cold sore B00.1 Screening-pulmonary TB Z11.1 Assessment & Plan Assessment & Plan (1) Encounter to discuss test results: Code(s): Z71.2 - Person consulting for explanation of examination or test findings (2) Iron deficiency: Code(s): E61.1 - Iron deficiency (3) Low ferritin: Code(s): R79.0 - Abnormal level of blood mineral (4) Low mean corpuscular volume (MCV): Code(s): R71.8 - Other abnormality of red blood cells (5) Hyperlipidemia: Code(s): E78.5 - Hyperlipidemia, unspecified Qualifiers: Hyperlipidemia type: mixed hyperlipidemia Qualified Code(s): E78.2 - Mixed hyperlipidemia (6) Class 1 obesity: Code(s): E66.811 - Obesity, class 1 (7) Menorrhagia: Code(s): N92.0 - Excessive and frequent menstruation with regular cycle Category: Medical Qualifiers: Menorrhagia type: with regular cycle Qualified Code(s): N92.0 - Excessive and frequent menstruation with regular cycle (8) Sciatica: Code(s): M54.30 - Sciatica, unspecified side Qualifiers: Laterality: right Qualified Code(s): M54.31 - Sciatica, right side (9) Hx of cold sores: Code(s): Z86.19 - Personal history of other infectious and parasitic diseases (10) Cold sore: Code(s): B00.1 - Herpesviral vesicular dermatitis (11) Screening-pulmonary TB: Code(s): Z11.1 - Encounter for screening for respiratory tuberculosis Plan Orders: Orders US transvaginal Today N92.0 - Excessive and frequent menstruation with regular cycle US pelvic complete Today N92.0 - Excessive and frequent menstruation with regular cycle Quantiferon TB Gold Plus 1 Today Z11.1 - Encounter for screening for respiratory tuberculosis Referrals Nurse Navigator Referral D50.9 - Iron deficiency anemia, unspecified, E78.5 - Hyperlipidemia, unspecified Medications: New ascorbic acid (vitamin C) 500 mg PO DAILY 90 tabs 0RF ferrous sulfate 325 mg PO DAILY 90 tabs 0RF
--- OUTSIDE RECORDS SUMMARY | 2025-06-24 10:16 | XMS_ITS | Clinical Summary ---
Author Organization [facility] ity Address [address] [place] [address] Care Team Providers Care Order Control Clerk Blood Bank Name Role Phone Scott John MD Primary Care Provider [phone] Allergies No known active allergies Medications gabapentin [...] pain 12/15/2018 Overview (10/24/2024): 11/2018 Seen at [facility]- consult to scanning Immunizations Immunization Administration Dates Next Due Influenza Quadravalent, MDCK [...] * Cervical Cancer Screening: HPV (11/19/2020) Pathologist [facility] Cervical Cancer Screening: HPV Abstracted, No Interpretation [facility] Provider HEALTH MAINTENANCE Final Result * HIV Screening (11/18/2017) Pathologist [facility] HIV Screening abstracted [facility] Provider HEALTH MAINTENANCE Final Result * Hepatitis C Screening (11/18/2017) Pathologist [facility] Hepatitis C Screening abstracted [facility] Provider HEALTH MAINTENANCE Final Result from Last 3 Months or Most Recently Relevant to Health Maintenance Care Teams Order Control Clerk Blood Bank Relationship Specialty Start Date End Date Scott John MD [address] [facility] [place] [place] [address] PCP - General Internal Medicine 10/01/20
== END 2025-06-24 10:21 | disposition home or self-care (01) ==
LOC: HO.HMCFMS 09:28
PROVIDERS: PCP Student in an Organized Health Care Education/Training Program; Visit Provider Student in an Organized Health Care Education/Training Program
DX: E61.1 Iron deficiency (principal); R71.8 Other abnormality of red blood cells; E78.2 Mixed hyperlipidemia; E66.811 Obesity, class 1; N92.0 Excessive and frequent menstruation with regular cycle; M54.31 Sciatica, right side; Z86.19 Personal history of other infectious and parasitic diseases; B00.1 Herpesviral vesicular dermatitis; Z11.1 Encounter for screening for respiratory tuberculosis

== ENCOUNTER → 2025-06-24 09:28 | Outpatient (BNVA) | payer OTHER, SELFPAY | PROVIDERS: PCP Student in an Organized Health Care Education/Training Program; Visit Provider Student in an Organized Health Care Education/Training Program | DX: D50.9 Iron deficiency anemia, unspecified (principal); R79.0 Abnormal level of blood mineral; E78.2 Mixed hyperlipidemia; E66.811 Obesity, class 1; Z68.30 Body mass index [BMI] 30.0-30.9, adult; N92.0 Excessive and frequent menstruation with regular cycle; M54.31 Sciatica, right side; B00.1 Herpesviral vesicular dermatitis; Z86.19 Personal history of other infectious and parasitic diseases; Z13.31 Encounter for screening for depression | CPT/HCPCS: 99212 ==

== ENCOUNTER 2025-07-08 08:57 | Outpatient (AMB) | payer OTHER, SELFPAY ==
[2025-07-08 08:59] VITALS: BP 112/86; PULSE 88; TEMP 36.7; O2SAT 99
--- NOTE | 2025-07-08 08:59 | MHC.PC.OV ---
Vital Signs 07/08/25 08:59 Height 5 ft 1.2 in Weight 160 lb BMI 30.0 BP 112/86 Blood Pressure Location Rt brachial Position Sitting Pulse 88 Pulse Source Pulse Oximeter Temp 98.1 F Temp Source Oral Pulse Oximetry (%) 99 Oxygen Delivery Method Room Air Intake Visit Reasons: annual exam Accompanied by: Self / Same As Patient Allergies No Known Allergies Allergy (Verified 07/08/25 09:00) Tobacco use date assessed: 07/08/25 Dental Screening Dental Screen Date: 07/08/25 Did you have a dental visit in the last 12 months?: Yes Was dental information given to patient?: Patient has dentist HPI HPI Comments History of Present Illness Details History of Present Illness The patient is a 30-year-old female presenting with concerns of chronic intermittent hoarseness and throat discomfort, along with constipation due to iron supplementation. Constipation due to iron supplementation: - The patient reports constipation as a side effect of iron supplementation, which she is currently taking. - She experiences constipation regularly and has been advised to use MiraLAX and Dulcolax to manage this condition. Allergic rhinitis possibly due to environmental factors such as rugs: - The patient has experienced symptoms of allergic rhinitis, including nasal congestion and throat discomfort, potentially linked to environmental factors such as rugs in her home. - She has been advised to try cetirizine and Flonase to alleviate symptoms. Chronic intermittent hoarseness and throat discomfort: - The patient reports a two-year history of intermittent hoarseness and throat discomfort, with symptoms worsening during allergy season. - She feels as though something is stuck in her throat and experiences throat pain, though not diana to strep throat. - The patient has not previously sought treatment for this issue but has been advised to try cetirizine and Flonase. Review of Systems - Respiratory: Reports intermittent hoarseness and throat discomfort for two years. Denies cough or dyspnea. - Gastrointestinal: Reports constipation due to iron supplementation. - Allergic/Immunologic: Reports nasal congestion and throat discomfort, possibly due to environmental allergies. 10-point ROS reviewed and negative except as noted in HPI Past Medical History Health Maintenance - Preventative care: Transvaginal ultrasound scheduled for August to assess for fibroids. Physical Exam General: Well-appearing, in no acute distress. Vital signs: Within normal limits. HEENT: Normocephalic, atraumatic. PERRLA, EOMI. Conjunctiva clear, sclera anicteric. Oropharynx clear, mucous membranes moist. TMs intact bilaterally. Nose appears red and congested. Neck: Supple, no lymphadenopathy, no thyromegaly, no JVD or carotid bruits. Cardiovascular: RRR, normal S1/S2, no murmurs, rubs, or gallops. Peripheral pulses 2+ and symmetric. No edema. Respiratory: Lungs clear to auscultation bilaterally, no wheezes, rales, or rhonchi. Normal effort. Abdomen: Soft, non-tender, non-distended. Normoactive bowel sounds. No hepatosplenomegaly, no masses. MSK: Full range of motion, no joint swelling or deformity. Normal gait. Skin: Warm, dry, intact. No rashes, lesions, or pallor. Neuro: Alert and oriented x3. Cranial nerves II-XII intact. Strength 5/5 throughout. Sensation intact. Reflexes 2+ symmetric. Normal coordination and gait. Psych: Appropriate mood and affect. Normal judgment and insight. Plan 1. Constipation Due To Iron Supplementation - Prescribed MiraLAX and Dulcolax to manage constipation associated with iron supplementation. 2. Allergic Rhinitis Possibly Due To Environmental Factors Such As Rugs - Recommended cetirizine and Flonase to alleviate symptoms of allergic rhinitis. 3. Chronic Intermittent Hoarseness And Throat Discomfort - Advised trial of cetirizine and Flonase for symptomatic relief. - Consider referral to an ENT specialist if symptoms persist after treatment trial. Discussion Notes I discussed with the patient the management of her constipation due to iron supplementation, recommending MiraLAX and Dulcolax. We also addressed her symptoms of allergic rhinitis, suggesting cetirizine and Flonase. If her hoarseness persists, a referral to an ENT specialist may be necessary. Patient was informed and verbally consented to the use of an ambient scribe for clinic note documentation during this visit. Patient Instructions - Take MiraLAX in the morning and Dulcolax at night to manage constipation. - Use cetirizine daily and Flonase as directed for allergy symptoms. - Follow up in one to two weeks to assess symptom improvement. - Consider seeing an ENT specialist if symptoms do not improve. Total time spent caring for the patient today was 30 minutes. This includes time spent before the visit reviewing the chart, time spent documenting, and time spent reviewing laboratory results, diagnostic imaging, medications, performing a medically necessary evaluation, counseling on diagnoses, care coordination, ordering appropriate tests, ordering appropriate medications. [facility] Medical History (Updated 07/08/25 @ 09:22 by Kris Alanis MD) Acute allergic rhinitis Constipation Menorrhagia Family History (Reviewed 07/08/25 @ 09:05 by Jazmin Zuniga [facility] [address]) Father Parkinson disease Seizure Mother High cholesterol High blood pressure Non-alcoholic fatty liver disease Social History Housing: House Alcohol intake: current Alcohol intake frequency: does not drink Patient Tobacco Use Status: Never used Tobacco service: No Current occupational status: unemployed Cognitive needs: No Hearing needs: No Vision needs: Yes (rx glasses) Questionnaire PHQ-9 Over the last 2 weeks, how often have you been bothered by any of the following problems? 1. Little interest or pleasure in doing things: several days 2. Feeling down, depressed, or hopeless: several days 3. Trouble falling or staying asleep, or sleeping too much: several days 4. Feeling tired or having little energy: several days 5. Poor appetite or overeating: several days 6. Feeling bad about yourself - or that you are a failure or have let yourself or your family down: several days 7. Trouble concentrating on things, such as reading the newspaper or watching television: several days 8. Moving or speaking so slowly that other people could have noticed. Or the opposite - being so fidgety or restless that you have been moving around a lot more than usual: several days 9. Thoughts that you would be better off or of hurting yourself in some way: not at all Total score: 8 Depression Screening Interpretation: Positive Depression Screening Done: Yes Source: Developed by Drs. Eric Tierney, Sirisha Jeffery, Kvng Brandt and colleagues, with an educational letha from [employer]. Thrive Questionnaire Date Thrive assessed: 07/08/25 I am a: Patient What is your living situation today?: I have a steady place to live Within the past 12 months, did the food you bought not last and you didn't have the money to get more?: Sometimes True Within the past 12 months, did you worry whether your food would run out before you got money to buy more?: Sometimes True Do you have trouble paying for medicines?: No Do you have trouble getting transportation to medical appointments?: No Do you have trouble paying your heating and electricity bill?: No Do you have trouble taking care of your child, family member or friend?: No Do you have trouble with day-to-day activities such as bathing, preparing meals, shopping, managing finances, etc.?: No Are you currently unemployed and looking for a job?: No Are you interested in more education?: No Please select the resources that you would like help with: None Currently or been in a relationship where the following occur: No concerns reported THRIVE Score: 2 AUDIT C Alcohol Use Questionnaire (AUDIT-C) 3. How often do you have six or more drinks on one occasion?: Never Total Score: 0 NIK-7 AMB Questionnaire NIK-7 Date NIK - 7 assessed: 07/08/25 Feeling nervous, anxious, or on edge: 1 = Several days Not being able to stop or control worryin = Several days Worrying too much about different things: 1 = Several days Trouble relaxin = Several days Being so restless that it is hard to sit still: 2 = More than half the days Becoming easily annoyed or irritable: 2 = More than half the days Feeling afraid as if something awful might happen: 1 = Several days Total NIK-7 score (0-4 normal; 5-9 mild; 10-14 moderate; 15-21 severe): 9 Source: Developed by Drs. Eric Tierney, Sirisha Jeffery, Kvng Brandt and colleagues, with an educational letha from [employer]. Physical exam (Primary Care) Vital Signs: Last Vital Signs Temp 98.1 F 07/08/25 08:59 Pulse 88 07/08/25 08:59 BP 112/86 07/08/25 08:59 Pulse Ox 99 07/08/25 08:59 Oxygen Delivery Method Room Air 07/08/25 08:59 BMI result Body Mass Index 30.0 Tobacco/Smoking Status: Tobacco use Status Tobacco use date assessed 07/08/25 07/08/25 09:06 Patient Tobacco Use Status Never used Tobacco 07/08/25 09:06 PHQ-9: PHQ-9 Score PHQ-9: Total score 8 07/08/25 09:06 Depression Screening Interpretation: Positive Thrive Assessment: Date of Thrive Assessment Date Thrive assessed 07/08/25 07/08/25 09:06 Currently or been in a relationship where the following occur: No concerns reported Coding Level of Care Code Est Pt Level 4 (87016) Diagnoses Hoarseness, chronic R49.0 Acute allergic rhinitis J30.9 Medication side effect T88.7XXA Drug-induced constipation K59.03 Constipation type: drug induced constipation Menorrhagia with regular cycle N92.0 Menorrhagia type: with regular cycle Assessment & Plan Assessment & Plan (1) Hoarseness, chronic: Code(s): R49.0 - Dysphonia (2) Acute allergic rhinitis: Code(s): J30.9 - Allergic rhinitis, unspecified Category: Medical (3) Medication side effect: Code(s): T88.7XXA - Unspecified adverse effect of drug or medicament, initial encounter (4) Constipation: Code(s): K59.00 - Constipation, unspecified Category: Medical Qualifiers: Constipation type: drug induced constipation Qualified Code(s): K59.03 - Drug induced constipation (5) Menorrhagia: Code(s): N92.0 - Excessive and frequent menstruation with regular cycle Category: Medical Qualifiers: Menorrhagia type: with regular cycle Qualified Code(s): N92.0 - Excessive and frequent menstruation with regular cycle Plan Medications: New bisacodyl 5 mg PO BEDTIME 2 tabs 0RF 2 days cetirizine (All Day Allergy (cetirizine)) 10 mg PO DAILY PRN 90 caps 0RF allergy symptoms polyethylene glycol 3350 (Miralax) 17 grams PO DAILY 476 grams 0RF K59.00 - Constipation, unspecified fluticasone propionate 50 mcg/actuation (Flonase Allergy Relief) administer into each nostril 1 spray intranasal DAILY 16 grams 0RF J30.9 - Allergic rhinitis, unspecified
--- OUTSIDE RECORDS SUMMARY | 2025-07-08 09:01 | XMS_ITS | Clinical Summary ---
Author Organization [facility] ity Address [address] [place] [address] Care Team Providers Care Overedge Sewer Name Role Phone Scott John MD Primary Care Provider [phone] Allergies No known active allergies Medications gabapentin [...] pain 12/15/2018 Overview (10/24/2024): 11/2018 Seen at [facility]- consult to scanning Immunizations Immunization [...] of 3 - 19+ 3-dose series) 2012 HPV Vaccines (1 - 3-dose SCD M series) 2020 Social Influencers of Health Screening 09/04/2022 Depression Screening 09/26/2024 COVID-19 Vaccine (1 - 2023-2 5 season) 2025 Influenza Vaccine (#1) 2025 8, 08/26/2016 Cervical Cancer Screening: HPV 11/19/2025 11/19/2020 DTaP,Tdap,and Td Vaccines (3 - Td or Tdap) 04/06/2028 04/06/2018, 10/13/2013 RSV Immunization Adult Patients (1 - 1-dose 75+ series) 2068 HIV Screening Completed 11/18/2017 Hepatitis C Screening [...] * Cervical Cancer Screening: HPV (11/19/2020) Pathologist [facility] Cervical Cancer Screening: HPV Abstracted, No Interpretation Historical Provider HEALTH MAINTENANCE Final Result * HIV Screening (11/18/2017) Pathologist [facility] HIV Screening abstracted Historical Provider HEALTH MAINTENANCE Final Result * Hepatitis C Screening (11/18/2017) Pathologist [facility] Hepatitis C Screening abstracted Historical Provider HEALTH MAINTENANCE Final Result from Last 3 Months or Most Recently Relevant to Health Maintenance Care Teams Overedge Sewer Relationship Specialty Start Date End Date Scott John MD [address] [place] [address] PCP - General Internal Medicine 10/01/20
== END 2025-07-08 09:20 | disposition home or self-care (01) ==
LOC: HO.HMCFMS 08:58
PROVIDERS: PCP Student in an Organized Health Care Education/Training Program; Visit Provider Student in an Organized Health Care Education/Training Program
DX: R49.0 Dysphonia (principal); J30.9 Allergic rhinitis, unspecified; T88.7XXA Unspecified adverse effect of drug or medicament, initial encounter; K59.03 Drug induced constipation; N92.0 Excessive and frequent menstruation with regular cycle

== ENCOUNTER 2025-07-08 08:57 | Outpatient (REF) | payer OTHER, SELFPAY ==
[2025-07-10 16:23] LABS: Quantiferon TB Gold Plus 1 NEGATIVE (NEGATIVE); TB Test (QFT) Mitogen -Nil 9.76 IU/mL; TB Test (QFT) Nil 0.01 IU/mL; TB Test (QFT) Plus TB1 -Nil 0.00 IU/mL; TB Test (QFT) Plus TB2 -Nil 0.01 IU/mL
== END 2025-07-08 08:58 | disposition home or self-care (01) ==
LOC: HO.HKASLDS 08:57
PROVIDERS: PCP Student in an Organized Health Care Education/Training Program; Visit Provider Student in an Organized Health Care Education/Training Program
DX: K59.03 Drug induced constipation (principal); T45.4X5A Adverse effect of iron and its compounds, initial encounter; J30.9 Allergic rhinitis, unspecified; R49.0 Dysphonia; N92.0 Excessive and frequent menstruation with regular cycle; Z11.1 Encounter for screening for respiratory tuberculosis
CPT/HCPCS: 36415; 86480

== ENCOUNTER 2025-08-19 09:30 | Outpatient (AMB) | payer OTHER, SELFPAY ==
[2025-08-19 09:45] VITALS: BP 116/82; PULSE 91; TEMP 36.6; O2SAT 99; BMI 30.2
--- NOTE | 2025-08-19 09:45 | AM.OFFWIN_ITS ---
Intake Vital Signs 08/19/25 09:45 Height 5 ft 1.2 in Weight 161 lb BMI 30.2 BP 116/82 Blood Pressure Location Rt brachial Position Sitting Pulse 91 Pulse Source Pulse Oximeter Temp 97.8 F Temp Source Oral Pulse Oximetry (%) 99 Oxygen Delivery Method Room Air Intake Visit Reasons: EP - ?Sciatica Intake Note: EP complains of lower back pain radiated to left leg for two years and became sever since this Tuesday. Patient Tobacco Use Status: Never used Tobacco Allergies No Known Allergies Allergy (Verified 08/19/25 09:58) Do you need a note to return to daycare/school/sports/work: No HPI HPI Comments History of Present Illness Details History of Present Illness The patient is a 30 year old individual presenting with a flare-up of chronic low back pain. Sciatica: - The patient has a history of chronic b ack pain since the of her child 7 years ago - The current presentation is an acute f lare-up of shooting pain, which is worse on the left side, radiating down the leg. - Associated symptoms include tingling i n the leg - Pain is exacerbated by changing positi ons - Patient denies any saddle anesthesia o r urinary/stool dysfunction. - Patient denies any numbness in the leg - The patient has been taking Tylenol an d Motrin with no relief. - A prior Toradol injection at an urgent care was not very helpful, and lidocaine patches have provided some benefit. - The patient reports that she has had i maging of her lower back in the past which showed arthritis. Review of Systems Constitutional: Negative for fevers Gastrointestinal: Negative for stool dysfunction Genitourinary: Negative for difficulty urinating, hematuria Musculoskeletal: Positive for back pain. Skin: Negative for rash or wounds Neurological: Positive for left leg tingling and radiation of pain. Denies LE weakness Physical Exam General Appearance: Normal appearance, well developed. No acute distress Head: Normocephalic, atraumatic Pulmonary: No respiratory distress. Speaking in full sentences Musculoskeletal: TTP overlying the left SI joint and left paraspinal muscle. No TTP over spine. Neg straight leg raise. Symmetric 5/5 strength for LE, sensation intact, Slow gait and limited flexion at waist 2/2 pain. Moving all extremities spontaneously and against gravity Mental Status: Alert and Oriented x 3 Psychiatric: Normal mood. Normal affect. [facility] Medical History (Updated 07/08/25 @ 09:22 by Kris Alanis MD) Acute allergic rhinitis Constipation Menorrhagia Family History Father Parkinson disease Seizure Mother High cholesterol High blood pressure Non-alcoholic fatty liver disease Social History Housing: House Alcohol intake: current Alcohol intake frequency: does not drink Patient Tobacco Use Status: Never used Tobacco service: No Current occupational status: unemployed Cognitive needs: No Hearing needs: No Vision needs: Yes (rx glasses) Physical Exam Vital Signs: Last Vital Signs Temp 97.8 F 08/19/25 09:45 Pulse 91 08/19/25 09:45 BP 116/82 08/19/25 09:45 Pulse Ox 99 08/19/25 09:45 Oxygen Delivery Method Room Air 08/19/25 09:45 BMI result Body Mass Index 30.2 Assessment & Plan Assessment & Plan (1) Left-sided low back pain with left-sided sciatica: Code(s): M54.42 - Lumbago with sciatica, left side Qualifiers: Chronicity: chronic Qualified Code(s): M54.42 - Lumbago with sciatica, left side; G89.29 - Other chronic pain Plan Assessment and Plan 1. Sciatica - The patient presents with an acute exacerbation of chronic low back pain consistent with sciatica. The pain radiates down the left leg. Red flag symptoms such as saddle anesthesia and urinary/stool dysfunction were ruled out. - As patient reported no improvement in symptoms with NSAIDs or previous Toradol shot, A Medrol Dosepak was prescribed to reduce inflammation. Discussed t emporary increase in blood sugars while taking steroids. Patient was also informed about potential side effects such as insomnia and hyperactivity. - The patient is instructed to avoid NSAIDs like ibuprofen while taking the steroids. - Tylenol may be used for additional pain control as needed. - Lidocaine patches will be prescribed for topical analgesia. - Application of heat packs is recommended, but not concurrently with the lidocaine patch to avoid samaniego. - Advised F/U if no improvement or worsening symptoms. Patient was informed and verbally consented to the use of an ambient scribe for clinic note documentation during the visit. Medications: New methylprednisolone PO PER PKG DIR for 6 days 21 ea 0RF lidocaine 5% leave on most painful area for up to 12 hrs 1 patch topical DAILY PRN 15 ea 0RF pain Coding Level of Care Code Est Pt Level 3 (97955) Diagnoses Chronic left-sided low back pain with left-sided sciatica M54.42; G89.29 Chronicity: chronic
--- OUTSIDE RECORDS SUMMARY | 2025-08-19 10:55 | XMS_ITS | Clinical Summary ---
Author Organization [facility] ity Address [address] [place] [address] Care Team Providers Care Branch Logistics Supervisor Name Role Phone Scott John MD Primary Care Provider [phone] Allergies No known active allergies Medications gabapentin [...] pain 12/15/2018 Overview (10/24/2024): 11/2018 Seen at [facility]- consult to scanning Immunizations Immunization [...] Depression Screening 09/26/2024 COVID-19 Vaccine (1 - 2024-2 6 season) 2025 Influenza Vaccine (#1) 2025 8, [...] Cancer Screening: HPV (11/19/2020) Pathologist [facility] Cervical Cancer Screening: HPV Abstracted, No Interpretation Historical Provider HEALTH MAINTENANCE Final Result * HIV Screening (11/18/2017) Pathologist [facility] HIV Screening abstracted Historical Provider HEALTH MAINTENANCE Final Result * Hepatitis C Screening (11/18/2017) Pathologist [facility] Hepatitis C Screening abstracted Historical Provider HEALTH MAINTENANCE Final Result from Last 3 Months or Most Recently Relevant to Health Maintenance Care Teams Branch Logistics Supervisor Relationship Specialty Start Date End Date Scott John MD [address] [facility] [address] PCP - General Internal Medicine 10/01/20
== END 2025-08-19 10:21 | disposition home or self-care (01) ==
LOC: HO.HMCWIS 09:30
PROVIDERS: PCP Student in an Organized Health Care Education/Training Program; Visit Provider Family Medicine
DX: M54.42 Lumbago with sciatica, left side (principal); G89.29 Other chronic pain

== ENCOUNTER → 2025-08-19 09:30 | Outpatient (BNVA) | payer OTHER, SELFPAY | PROVIDERS: PCP Student in an Organized Health Care Education/Training Program; Visit Provider Family Medicine | DX: M54.42 Lumbago with sciatica, left side (principal); G89.29 Other chronic pain | CPT/HCPCS: 99212 ==

== ENCOUNTER 2025-09-02 10:15 | Outpatient (REF) | payer OTHER, SELFPAY ==
--- NOTE | ~2025-09-02 | US_ITS ---
EXAMINATION: US PELVIS TRANSABDOMINAL AND TRANSVAGINAL HISTORY: N92.0 - Excessive and frequent menstruation with regular cycle COMPARISON: Ultrasound 04/01/2015 report. No images available for comparison. TECHNIQUE: Transabdominal and transvaginal evaluation FINDINGS: LMP:3 weeks ago Uterus: The uterus is normal in size, anteverted and anteflexed, measuring 8.1 x 4 x 6.4 cm. Myometrium has a normal echotexture. No lesions identified. Endometrium: The endometrial stripe measures 13 mm in thickness. Right ovary: The right ovary measures 4 x 2.1 x 2.1 cm. Volume 9.2 mL. 1.1 x 0.7 x 0.9 cm echogenic focus, nonspecific. Left ovary: The left ovary measures 2.5 x 2.2 x 1.9 cm. Volume 5.5 mL. The left ovary is normal in size and echotexture. Pelvic fluid: Small amount of free fluid. US/US pelvic and transvaginal IMPRESSION: * No uterine lesion is seen. * Echogenic 1.1 x 0.7 x 0.9 cm focus in the right ovary. This is nonspecific. Differential consideration include hemorrhagic cyst, other etiologies. Recommend short-term follow-up ultrasound in 6-8 weeks.. Electronically signed by: Domenico Menendez MD 09/02/2025 11:19 AM [facility]
--- NOTE | ~2025-09-02 | US_ITS ---
EXAMINATION: US ABDOMEN HISTORY: R10.9 - Unspecified abdominal pain TECHNIQUE: Real-time grayscale ultrasound imaging of the abdomen was performed and images were reviewed. COMPARISON: There are no prior studies available for comparison. FINDINGS: Liver: The liver is normal in size. The liver demonstrates normal homogeneous echotexture. There are multiple echogenic masses noted, the largest of which is in the right lobe measuring 1.3 cm in size. No intrahepatic biliary ductal dilatation is identified. There is normal hepatopedal flow in the portal vein. Gallbladder and biliary tree: The gallbladder is unremarkable, without evidence of calculi, wall thickening, or pericholecystic fluid. There is no sonographic Seaman sign. The common bile duct is normal in caliber measuring 4 mm. Kidneys: The right kidney measures 10.0 cm in length and demonstrates mild hydronephrosis. No masses or calculi are identified.. The left kidney measures 11.0 cm in length. There is slight fullness of the renal pelvis without definite hydronephrosis. There are no masses or calculi. Pancreas: The pancreatic head, neck, and body are unremarkable. The pancreatic tail is obscured by bowel gas. Spleen: The spleen is normal in size and contour, measuring 10.8 cm in length. Abdominal aorta and inferior vena cava: The visualized portions of the abdominal aorta and inferior vena cava are normal in caliber. There is no free fluid in the abdomen. US/US abdomen complete IMPRESSION: 1. Multiple echogenic masses in the liver measuring up to 1.3 cm. These may represent hemangiomas. MRI of the abdomen without and with contrast should be considered. 2. Mild right hydronephrosis. If there is clinical concern for ureteral calculi, unenhanced CT could be performed. Electronically signed by: Eric Sarkar MD 09/02/2025 11:16 AM [facility]
== END 2025-09-02 10:16 | disposition home or self-care (01) ==
LOC: HO.US 10:15
PROVIDERS: PCP Student in an Organized Health Care Education/Training Program; Visit Provider Student in an Organized Health Care Education/Training Program
DX: N92.0 Excessive and frequent menstruation with regular cycle (principal); R10.9 Unspecified abdominal pain; Z76.89 Persons encountering health services in other specified circumstances; Z13.89 Encounter for screening for other disorder
CPT/HCPCS: 76700; 76830; 76856

== ENCOUNTER 2025-09-04 12:27 | Outpatient (REF) | payer OTHER, SELFPAY ==
--- NOTE | ~2025-09-04 | XR_ITS ---
EXAMINATION: XR LUMBOSACRAL SPINE CLINICAL INFORMATION: M54.30 - Sciatica, unspecified side COMPARISON: None available. TECHNIQUE: 6 views of the lumbar spine, inclusive of bilateral oblique views, were obtained. FINDINGS: There is no scoliosis. There is normal lordosis. There is no subluxation. There is no compression deformity, fracture, or suspicious bone lesion. Disc spaces are preserved. Facets are normally aligned. No pars defects. No significant degenerative change. Sclerosis on the iliac side of the bilateral SI joints noted, consistent with osteitis condensans ilii. Sacrum is intact. No soft tissue abnormalities. XR/XR lumbar spine 4V min IMPRESSION: Normal lumbar spine radiographs. Electronically signed by: Jimmy Tolentino MD 09/04/2025 02:53 PM KIM
--- OUTSIDE RECORDS SUMMARY | 2025-09-04 22:25 | XMS_ITS | Clinical Summary ---
Author Organization [facility] ity Address [address] [place] [address] Care Team Providers Care Security System Technician Name Role Phone Scott John MD Primary Care Provider [phone] Allergies No known active allergies Medications gabapentin [...] pain 12/15/2018 Overview (10/24/2024): 11/2018 Seen at [facility]- consult to scanning Immunizations Immunization [...] on file Sexual Orientation Not on file Last Filed Vital Signs Vital Sign Reading [...] * Cervical Cancer Screening: HPV (11/19/2020) [facility]ologist [facility] Cervical Cancer Screening: HPV Abstracted, No Interpretation Historical Provider HEALTH MAINTENANCE Final Result * HIV Screening (11/18/2017) Pathologist [facility] [place] HIV Screening abstracted [facility] Provider HEALTH MAINTENANCE Final Result * Hepatitis C Screening (11/18/2017) Pathologist [facility] Hepatitis C Screening abstracted Historical Provider HEALTH MAINTENANCE Final Result from Last 3 Months or Most Recently Relevant to Health Maintenance Care Teams Security System Technician Relationship Specialty Start Date End Date Scott John MD [address] [place] [address] [place] [id number] PCP - General Internal Medicine 10/01/20
== END 2025-09-04 12:28 | disposition home or self-care (01) ==
LOC: HO.XRAY 12:27
PROVIDERS: PCP Student in an Organized Health Care Education/Training Program; Visit Provider Physician Assistant
DX: M54.41 Lumbago with sciatica, right side (principal); M54.42 Lumbago with sciatica, left side
CPT/HCPCS: 72110

== ENCOUNTER 2025-09-04 12:27 | Outpatient (AMB) | payer OTHER, SELFPAY ==
--- NOTE | 2025-09-04 12:33 | MHC.OFFWIV ---
Intake Vital Signs 09/04/25 12:35 Height 5 ft 1.2 in Weight 160 lb BMI 30.0 BP 120/75 Blood Pressure Location Rt brachial Position Sitting Pulse 89 Pulse Source Pulse Oximeter Temp 97.7 F Temp Source Oral Pulse Oximetry (%) 99 Oxygen Delivery Method Room Air Intake Visit Reasons: EP - Abnormal Gait, Low back pain Intake Note: EP complains of chronic lower pain radiated to both leg and became severe during a couple of weeks. Patient Tobacco Use Status: Never used Tobacco Allergies No Known Allergies Allergy (Verified 09/04/25 12:43) Do you need a note to return to daycare/school/sports/work: No HPI HPI Comments History of Present Illness Details History - The patient is a 30-year-old female presenting with a flare-up of chronic low back pain and sciatica, which she reports has become very severe. - She describes the pain as a sharp, shooting, lightning-like sensation that affects her entire body, originating in her low back and radiating down both legs, with a particular focus on her left knee and buttocks. - The pain is significantly impacting her sleep, as she is unable to find a comfortable position, leading to exhaustion. - She denies any saddle parasthesias or loss of control of her bladder or bowels. - She notes that her symptoms, particularly the sciatica, worsen around this time of year. - Her medical history is notable for a spinal lesion found on an x-ray approximately three years ago, though she denies any prior trauma to her back. - A recent course of steroids provided only temporary relief for a couple of days. - She is not currently taking any pain medication. - The patient also experiences anxiety, which she feels is triggered by her physical limitations. - She has not tried stretching or PT for her sciatica previously. + Review of Systems - Constitutional: Reports fatigue, exhaustion, and severe hot flashes. - Chest: Reports a sensation of something sitting on her chest. - Musculoskeletal: Reports severe, chronic low back pain radiating to both legs. - Neurological: Reports sharp, shooting pain throughout the body but denies numbness and tingling in the saddle area. - Genitourinary: Denies urinary incontinence and urinary urgency. - Gastrointestinal: Denies bowel incontinence. - Psychiatric: Reports anxiety and feeling overwhelmed. All systems reviewed and are unremarkable except as noted in HPI Physical Exam General: cooperative, healthy appearing and comfortable, patient oriented x3, teary Head: Yes normal to inspection and Yes normocephalic General nose exam: Normal external nose present Face and sinus: Yes normal facial exam Effort & Inspection: normal respiratory effort and able to speak in complete sentences Back/spine: cervical, thoracic and lumbar spine normal to inspection cervical ROM normal, thoracic ROM normal, lumbar ROM abnormal due to pain no Cervical, thoracic spine tenderness palpable lump on lumbar spine with lumbar spine tenderness Extremities: moving extremities normally, straight leg test + bilat Neuro: A&O x3, gait limping [facility] Medical History (Updated 09/04/25 @ 13:11 by Fatimah Ruiz PA-C) Low back pain Sciatica Acute allergic rhinitis Constipation Menorrhagia Family History Father Parkinson disease Seizure Mother High cholesterol High blood pressure Non-alcoholic fatty liver disease Social History Housing: House Alcohol intake: current Alcohol intake frequency: does not drink Patient Tobacco Use Status: Never used Tobacco service: No Current occupational status: unemployed Cognitive needs: No Hearing needs: No Vision needs: Yes (rx glasses) Review of Systems Const All systems reviewed & are unremarkable except as noted in HPI and below Physical Exam Vital Signs: Last Vital Signs Temp 97.7 F 09/04/25 12:35 Pulse 89 09/04/25 12:35 BP 120/75 09/04/25 12:35 Pulse Ox 99 09/04/25 12:35 Oxygen Delivery Method Room Air 09/04/25 12:35 BMI result Body Mass Index 30.0 Assessment & Plan Assessment & Plan (1) Sciatica: Code(s): M54.30 - Sciatica, unspecified side Qualifiers: Laterality: bilateral Qualified Code(s): M54.31 - Sciatica, right side; M54.32 - Sciatica, left side Plan: Plan - An order will be placed for a stat x-ray of the low back with lumbar spinal ttp and palpable lump. - Prescribed a 10-day course of prednisone, tapering from 60 mg daily for 3 days, to 40 mg, then to 20 mg. The patient was advised to start the medication in the morning to avoid insomnia. - Prescribed a muscle relaxer to be taken at night to help with muscle tension and sleep. - Recommended adjunctive therapies including lidocaine patches and ice or heat. - A referral will be sent for physical therapy to learn stretches and exercises to manage pain and prevent recurrence. - The patient was educated on red flag symptoms, including complete loss of bladder/bowel control and saddle anesthesia, and was instructed to go to the emergency room if these occur. - The patient was advised to follow up with her primary care provider, Dr. Alanis, after completing the course of prednisone, if her pain continues. - Discussed potential future referral to a refrigeration specialist or pain management, pending x-ray results. Patient was informed and verbally consented to the use of an ambient scribe for clinic note documentation during this visit. (2) Low back pain: Code(s): M54.50 - Low back pain, unspecified Qualifiers: Chronicity: acute Back pain laterality: midline Sciatica presence: with sciatica Sciatica laterality: bilateral sciatica Qualified Code(s): M54.42 - Lumbago with sciatica, left side; M54.41 - Lumbago with sciatica, right side Plan: as above Orders: Orders XR lumbar spine 4V min Today M54.30 - Sciatica, unspecified side, M54.50 - Low back pain, unspecified PT Evaluation and Treatment Today M54.30 - Sciatica, unspecified side, M54.50 - Low back pain, unspecified Medications: New prednisone On days 1-3, take 3 tablets with breakfast, on days 4-6 take 2 tablets with breakfast, on days 7-10 take 1 tablet with breakfast 20 mg PO daily 19 tabs 0RF cyclobenzaprine 5 mg PO Q8H PRN 20 tabs 0RF Muscle Spasm Coding Level of Care Code Est Pt Level 4 (47503) Diagnoses Bilateral sciatica M54.31; M54.32 Laterality: bilateral Acute midline low back pain with bilateral sciatica M54.42; M54.41 Chronicity: acute Back pain laterality: midline Sciatica presence: with sciatica Sciatica laterality: bilateral sciatica
[2025-09-04 12:35] VITALS: BP 120/75; PULSE 89; TEMP 36.5; O2SAT 99
== END 2025-09-04 13:21 | disposition home or self-care (01) ==
LOC: HO.HMCWIS 12:27
PROVIDERS: PCP Student in an Organized Health Care Education/Training Program; Visit Provider Physician Assistant
DX: M54.42 Lumbago with sciatica, left side (principal); M54.41 Lumbago with sciatica, right side

== ENCOUNTER → 2025-09-04 14:19 | Outpatient (BNV) | payer OTHER, SELFPAY | PROVIDERS: PCP Student in an Organized Health Care Education/Training Program; Visit Provider Radiology Diagnostic Radiology | DX: M54.30 Sciatica, unspecified side (principal) | CPT/HCPCS: 72110 ==